=== PATIENT | female | born 1970 | race Caucasian/White ===

== ENCOUNTER 2023-10-24 07:43 | Emergency (ER) | payer BC ==
[~2023-10-24] VITALS: Ht 152.4 cm; Wt 108.9 kg
[2023-10-24 07:48] VITALS: BP_SYST 120; PULSE 90; RESP 18; TEMP 97; O2SAT 100
[2023-10-24 08:26] LABS: BASOPHILS % (AUTO) 0.8 % (0.0-2.0); EOSINOPHILS # (AUTO) 0.1 K/uL (0.0-0.4); EOSINOPHILS % (AUTO) 2.8 % (0.0-4.0); HEMATOCRIT 38.3 % (36-48); HEMOGLOBIN 12.6 g/dL (12.0-16.0); LYMPHOCYTES # (AUTO) 1.5 K/uL (1.0-5.5); LYMPHOCYTES % (AUTO) 27.9 % (20.5-51.5); MEAN CORPUSCULAR HEMOGLOBIN 28 pg (27-31); MEAN CORPUSCULAR HGB CONC 33 % (32-36); MEAN CORPUSCULAR VOLUME 86 fL (79.0-98.0); MONOCYTES # (AUTO) 0.7 K/uL (0.0-1.0); MONOCYTES % (AUTO) 12.8 % (1.7-9.3); NEUTROPHILS % (AUTO) 55.7 % (40.0-70.0); PLATELET COUNT (AUTO) 202 K/uL (130-430); RED BLOOD CELL COUNT(AUTO) 4.44 MIL/uL (4.2-6.2); RED CELL DISTRIBUTION WIDTH 14.7 % (9.0-15.0); WHITE BLOOD COUNT (AUTO) 5.4 K/uL (4.8-10.8)
[2023-10-24 09:21] LABS: CALCIUM 8.3 mg/dL (8.4-11.0); CREATININE 0.64 mg/dL (0.55-1.30); POTASSIUM 3.7 mmol/L (3.5-5.1)
== END 2023-10-24 09:35 | disposition home or self-care (01) ==
LOC: SED 07:43
DX: R00.2 Palpitations (principal); Z88.8 Allergy status to other drugs, medicaments and biological substances; Z79.899 Other long term (current) drug therapy
CPT/HCPCS: 36415; 80048; 85025; 93005; 99284

== ENCOUNTER 2023-12-14 18:45 | Inpatient (IN) | payer BC ==
[~2023-12-14] VITALS: Ht 152.4 cm; Wt 95.3 kg
[2023-12-14 19:27] VITALS: BP_SYST 154; PULSE 92; RESP 20; TEMP 97.7; O2SAT 99
[2023-12-14 20:25] LABS: BILIRUBIN,URINE NEGATIVE (NEGATIVE); BLOOD, URINE NEGATIVE (NEGATIVE); CLARITY/URINE CLEAR (CLEAR); COLOR,URINE YELLOW (YELLOW); GLUCOSE,URINE NEGATIVE (NEGATIVE); KETONES,URINE NEGATIVE (NEGATIVE); LEUKOCYTE ESTERASE ,URINE TRACE (NEGATIVE); NITRITE, URINE NEGATIVE (NEGATIVE); PROTEIN URINE NEGATIVE (NEGATIVE); UROBILINOGEN,URINE 0.2 (0.2-1.0)
[2023-12-14 20:43] LABS: CALCIUM 9.3 mg/dL (8.4-11.0); CREATININE 0.69 mg/dL (0.55-1.30); POTASSIUM 4.5 mmol/L (3.5-5.1)
[2023-12-14 20:54] LABS: BASOPHILS % (AUTO) 0.4 % (0.0-2.0); EOSINOPHILS # (AUTO) 0.1 K/uL (0.0-0.4); EOSINOPHILS % (AUTO) 1.1 % (0.0-4.0); HEMOGLOBIN 12.9 g/dL (12.0-16.0); LYMPHOCYTES # (AUTO) 1.5 K/uL (1.0-5.5); LYMPHOCYTES % (AUTO) 17.2 % (20.5-51.5); MEAN CORPUSCULAR HEMOGLOBIN 28 pg (27-31); MEAN CORPUSCULAR HGB CONC 33 % (32-36); MEAN CORPUSCULAR VOLUME 84 fL (79.0-98.0); MONOCYTES # (AUTO) 0.7 K/uL (0.0-1.0); MONOCYTES % (AUTO) 8.4 % (1.7-9.3); NEUTROPHILS # (AUTO) 6.3 K/uL (1.8-7.7); NEUTROPHILS % (AUTO) 72.9 % (40.0-70.0); PLATELET COUNT (AUTO) 207 K/uL (130-430); RED BLOOD CELL COUNT(AUTO) 4.65 MIL/uL (4.2-6.2); RED CELL DISTRIBUTION WIDTH 15.1 % (9.0-15.0); WHITE BLOOD COUNT (AUTO) 8.6 K/uL (4.8-10.8)
[2023-12-14] MEDS: ONDANSETRON HCL 4 MG/2 ML VIAL IVP ONE (21:42)
[2023-12-14] MEDS: MORPHINE 4 MG INJ. 4 MG/ML VIAL IVP ONE (21:42)
[2023-12-14 21:44] LABS: RBC,URINE NONE SEEN /HPF (0-3)
[2023-12-14 21:45] LABS: BACTERIA,URINE FEW /HPF (None Seen); MUCUS,URINE None Seen /LPF (None Seen)
[2023-12-15] MEDS: MORPHINE 4 MG INJ. 4 MG/ML VIAL IVP ONE (03:14)
[2023-12-15] MEDS ORDERED: METH-373 PO (03:22)
[2023-12-15] MEDS: DIPHENHYDRAMINE INJ 50 MG/ML VIAL IVP ONE (06:46)
[2023-12-15] MEDS: METOCLOPRAMIDE HCL 10 MG/2 ML VIAL IVP ONE (06:46)
[2023-12-15] MEDS ORDERED: GASTROGRAFIN 120 ML ONE (08:10)
[2023-12-15 10:09] VITALS: BP_SYST 136; PULSE 98; RESP 16; TEMP 97.1; O2SAT 96
[2023-12-15] MEDS: D5LR 1,000 ML IV SCH (11:14)
[2023-12-15] MEDS: ONDANSETRON HCL 4 MG/2 ML VIAL IVP ONE (11:14)
[2023-12-15 12:00] VITALS: BP_SYST 132; PULSE 98; RESP 16; TEMP 98.1
[2023-12-15] MEDS ORDERED: ONDANSETRON HCL 4 MG/2 ML VIAL IVP PRN (14:15)
[2023-12-15] MEDS ORDERED: BISACODYL 10 MG/SUPPOSITORY RC PRN (14:15)
[2023-12-15] MEDS: MORPHINE 4 MG INJ. 4 MG/ML VIAL IVP PRN (14:39)
[2023-12-15 16:00] VITALS: BP_SYST 130; PULSE 74; RESP 16; TEMP 98.2; O2SAT 98
[2023-12-15] MEDS: PANTOPRAZOLE SODIUM 40 MG/VIAL (PROTONIX) IVP ONE (16:51)
[2023-12-15] MEDS: BISACODYL 10 MG/SUPPOSITORY RC ONE (16:51)
[2023-12-15 19:45] VITALS: BP_SYST 145; PULSE 90; RESP 18; TEMP 97.9; O2SAT 98
[2023-12-15 20:00] VITALS: BP_SYST 145; PULSE 90; RESP 18; TEMP 96.9; O2SAT 98
[2023-12-15] MEDS: PANTOPRAZOLE SODIUM 40 MG/VIAL (PROTONIX) IVP SCH (20:25)
[2023-12-16] VITALS: BP_SYST 145; PULSE 92; RESP 18; TEMP 96.9; O2SAT 97
[2023-12-16 05:35] LABS: BASOPHILS % (AUTO) 0.3 % (0.0-2.0); EOSINOPHILS % (AUTO) 0.3 % (0.0-4.0); HEMATOCRIT 43.9 % (36-48); HEMOGLOBIN 14.8 g/dL (12.0-16.0); LYMPHOCYTES # (AUTO) 0.9 K/uL (1.0-5.5); LYMPHOCYTES % (AUTO) 8.2 % (20.5-51.5); MEAN CORPUSCULAR HEMOGLOBIN 28 pg (27-31); MEAN CORPUSCULAR HGB CONC 34 % (32-36); MEAN CORPUSCULAR VOLUME 84 fL (79.0-98.0); MONOCYTES # (AUTO) 1.1 K/uL (0.0-1.0); MONOCYTES % (AUTO) 10.1 % (1.7-9.3); NEUTROPHILS # (AUTO) 8.6 K/uL (1.8-7.7); NEUTROPHILS % (AUTO) 81.1 % (40.0-70.0); PLATELET COUNT (AUTO) 232 K/uL (130-430); RED BLOOD CELL COUNT(AUTO) 5.26 MIL/uL (4.2-6.2); RED CELL DISTRIBUTION WIDTH 15.4 % (9.0-15.0); WHITE BLOOD COUNT (AUTO) 10.6 K/uL (4.8-10.8)
[2023-12-16 05:58] LABS: ALANINE AMINOTRANSFERASE 30 U/L (12-78); ALBUMIN 3.4 g/dL (3.4-4.8); ANION GAP 8 (5-15); ASPARTATE AMINOTRANSFERASE 16 U/L (10-37); CALCIUM 9.4 mg/dL (8.4-11.0); CARBON DIOXIDE 30 mmol/L (23-29); CHLORIDE 99 mmol/L (98-107); CREATININE 0.65 mg/dL (0.55-1.30); FREE T4 (FREE THYROXINE) 2.4 ng/dl (0.8-1.5); GFR AFRICAN AMERICAN 123 mL/min (>90); GFR NON AFRICAN-AMERICAN 101 mL/min (>90); GLUCOSE 114 mg/dL (74-106); LIPASE 29 U/L (16-77); POTASSIUM 3.6 mmol/L (3.5-5.1); SODIUM SERUM 137 mmol/L (136-145); THYROID STIMULATING HORMONE < 0.01 uIu/mL (0.36-3.74); TOTAL BILIRUBIN 0.5 mg/dL (0.0-1.0); TOTAL PROTEIN, SERUM 8.3 g/dL (6.4-8.3); UREA NITROGEN, BLOOD 15 mg/dL (8-21)
[2023-12-16 08:12] VITALS: BP_SYST 129; PULSE 98; RESP 19; TEMP 97.7; O2SAT 98
[2023-12-16 09:30] VITALS: O2SAT 98
[2023-12-16] MEDS: methIMAzole 5 MG TABLET PO SCH (10:05)
[2023-12-16 12:00] VITALS: BP_SYST 142; PULSE 97; RESP 17; TEMP 98.2; O2SAT 92
[2023-12-16] MEDS: ONDANSETRON HCL 4 MG/2 ML VIAL IVP PRN (13:11)
[2023-12-16] MEDS ORDERED: BISACODYL 10 MG/SUPPOSITORY RC PRN (15:15)
[2023-12-16] MEDS: BISACODYL 10 MG/SUPPOSITORY RC ONE (15:30)
[2023-12-16 20:30] VITALS: BP_SYST 144; PULSE 100; RESP 18; TEMP 98.1; O2SAT 97
[2023-12-17 01:59] VITALS: BP_SYST 131; PULSE 88; RESP 17; TEMP 98.5; O2SAT 94
[2023-12-17 06:25] LABS: BASOPHILS % (AUTO) 0.2 % (0.0-2.0); EOSINOPHILS # (AUTO) 0.1 K/uL (0.0-0.4); EOSINOPHILS % (AUTO) 1.6 % (0.0-4.0); HEMATOCRIT 36.6 % (36-48); HEMOGLOBIN 12.4 g/dL (12.0-16.0); LYMPHOCYTES # (AUTO) 0.9 K/uL (1.0-5.5); LYMPHOCYTES % (AUTO) 11.2 % (20.5-51.5); MEAN CORPUSCULAR HEMOGLOBIN 28 pg (27-31); MEAN CORPUSCULAR HGB CONC 34 % (32-36); MEAN CORPUSCULAR VOLUME 83 fL (79.0-98.0); MONOCYTES # (AUTO) 0.9 K/uL (0.0-1.0); MONOCYTES % (AUTO) 12.4 % (1.7-9.3); NEUTROPHILS # (AUTO) 5.7 K/uL (1.8-7.7); NEUTROPHILS % (AUTO) 74.6 % (40.0-70.0); PLATELET COUNT (AUTO) 196 K/uL (130-430); RED CELL DISTRIBUTION WIDTH 14.9 % (9.0-15.0); WHITE BLOOD COUNT (AUTO) 7.6 K/uL (4.8-10.8)
[2023-12-17 06:36] LABS: ALBUMIN 2.5 g/dL (3.4-4.8); CALCIUM 8.2 mg/dL (8.4-11.0); CREATININE 0.48 mg/dL (0.55-1.30); POTASSIUM 3.3 mmol/L (3.5-5.1); TOTAL BILIRUBIN 0.4 mg/dL (0.0-1.0); TOTAL PROTEIN, SERUM 6.4 g/dL (6.4-8.3)
[2023-12-17 08:10] VITALS: O2SAT 98
[2023-12-17 11:29] VITALS: BP_SYST 144; PULSE 91; RESP 16; TEMP 97.3; O2SAT 97
[2023-12-17] MEDS: POTASSIUM CHLORIDE 20 MEQ TABLET.ER PO ONE (14:32)
[2023-12-17 15:00] VITALS: BP_SYST 125; PULSE 78; RESP 18; TEMP 97.5; O2SAT 98
== END 2023-12-17 15:30 | disposition home or self-care (01) | DRG 389 ==
LOC: SED 18:45 → SMU 12-15 02:12
PROVIDERS: ADMIT Internal Medicine; ATTEND Internal Medicine
PROC: 0DH67UZ Insertion of Feeding Device into Stomach, Via Natural or Artificial Opening (ICD-10-PCS; principal; 2023-12-15)
DX: K56.609 Unspecified intestinal obstruction, unspecified as to partial versus complete obstruction (principal); Z68.41 Body mass index [BMI] 40.0-44.9, adult; E11.9 Type 2 diabetes mellitus without complications; E66.9 Obesity, unspecified; I10 Essential (primary) hypertension; Z88.8 Allergy status to other drugs, medicaments and biological substances; Z79.899 Other long term (current) drug therapy
CPT/HCPCS: 36415; 71045; 74018; 74250; 80048; 80053; 81000; 81001; 81015; 83690; 83735; 84439; 84443; 84702; 85025; 87086; 96374; 96375; 99285; C9113; J1200; J2270; J2405; J2765; Q9963